=== PATIENT | female | born 1950 | race Caucasian/White ===

== ENCOUNTER 2022-08-29 13:14 | Outpatient (CLI) | payer MEDICARE, OTHER, SELFPAY ==
--- NOTE | 2022-08-29 13:34 | MM_ITS ---
WS: [id number] BILATERAL 3D TOMOSYNTHESIS DIGITAL SCREENING MAMMOGRAPHY WITH CAD CLINICAL INFORMATION: SCREEN HISTORY: Screening mammogram. No current complaints. COMPARISON: 2019 TECHNIQUE: Bilateral CC and MLO views. FINDINGS: Scattered fibroglandular densities bilaterally. No suspicious focal mass, asymmetry, calcifications, or architectural distortion. No evidence of malignancy. Dystrophic calcifications. Punctate and lucen t centered calcifications. Vascular calcifications. MM/[id number] IMPRESSION: BI-RADS: 2-Benign FOLLOW UP: 1 Year Follow-up Recommend return to annual screening mammography.
--- NOTE | 2022-08-29 13:47 | USCV_ITS ---
Lucia Connolly Age: 71 Gender: F : 1950 Exam Date: 08/29/2022 14:20 Ordering Phys: Justice Beltre XX Technologist: Exam [place] [facility] [place]: chest pain BP: 130 / 70 HR: 85 Rhythm: Sinus Technical Quality: Adequate MEASUREMENTS (Male / Female) Normal Values 2D ECHO LV Diastolic Diameter PLAX 3.8 cm 4.2 - 5.9 / 3.9 - 5.3 cm LV Systolic Diameter PLAX 2.3 cm IVS Diastolic Thickness 1.2 cm 0.6 - 1.0 / 0.6 - 0.9 cm IVS Systolic Thickness 1.4 cm LVPW Diastolic Thickness 1.1 cm 0.6 - 1.0 / 0.6 - 0.9 cm LVPW Systolic Thickness 1.8 cm LVOT Diameter 2.0 cm LV Ejection Fraction 2D Teich 71.3 % LV Ejection Fraction MOD 2C 77.0 % LV Ejection Fraction 2C AL 76.2 % LA Diameter 4.0 cm M-MODE Aortic Annulus Diameter 3.1 cm LA Ao Ratio MM 1.4 MV E Point Septal Separation 1.0 cm DOPPLER AV Peak Velocity 140.0 cm/s LVOT Peak Velocity 104.0 cm/s AV Area Cont Eq vti 3.1 cm squared AV Area Cont Eq pk 2.4 cm squared MV Area PHT 4.1 cm squared Mitral E to A Ratio 0.7 MV E' Velocity 76.0 cm/s TR Peak Velocity 289.0 cm/s TR Peak Gradient 33.4 mmHg TV Peak E Velocity 103.0 cm/s Right Atrial Pressure 3.0 mmHg Pulmonary Artery Systolic Pressu 36.4 mmHg RV Acceleration Time 0.1 s FINDINGS Left Ventricle Left ventricle is normal in size. LV systolic function is normal with EF of 60 to 65%. No regional wall motion abnormalities are seen. Grade 1 diastolic dysfunction Right Ventricle Normal in size and function Right Atrium Normal in size Left Atrium Normal in size Mitral Valve Structurally normal mitral valve. No significant regurgitation Aortic Valve Aortic valve is thickened. No significant stenosis or regurgitation Tricuspid Valve Mild tricuspid regurgitation. RVSP is 35 to 40 mmHg. This is consistent with mild pulmonary hypertension. Pulmonic Valve Not well-visualized. Pericardium Normal Aorta Normal in size IVC Appears to be normal CONCLUSIONS LV systolic function is normal with EF of 60-65% Grade 1 diastolic dysfunction Mild tricuspid regurgitation Mild pulmonary hypertension No comparison studies are available. Piyush Best MD (Electronically Signed) Final Date: 10 September 2022 15:42 S
== END 2022-08-29 13:15 | disposition home or self-care (01) ==
LOC: RAD 13:18
PROVIDERS: Family Provider Family Medicine; Visit Provider Family Medicine
DX: Z12.31 Encounter for screening mammogram for malignant neoplasm of breast (principal); I07.1 Rheumatic tricuspid insufficiency; I27.20 Pulmonary hypertension, unspecified
CPT/HCPCS: 77063; 77067; 93306

== ENCOUNTER → 2023-11-20 14:30 | Outpatient (BNVA) | payer MEDICARE, OTHER, SELFPAY | PROVIDERS: Family Provider Family Medicine; PCP Family Medicine; Visit Provider Nurse Practitioner Family | DX: L30.9 Dermatitis, unspecified (principal); L81.4 Other melanin hyperpigmentation; L57.8 Other skin changes due to chronic exposure to nonionizing radiation; F42.4 Excoriation (skin-picking) disorder | CPT/HCPCS: 11104; 11105; 99204 ==

== ENCOUNTER 2023-11-30 11:50 | Outpatient (CLI) | payer MEDICARE, OTHER, SELFPAY ==
[2023-11-30 13:30] LABS: Alanine Aminotransferase 17 U/L (0-33); Aspartate Amino Transferase 24 U/L (0-32)
== END 2023-11-30 11:51 | disposition home or self-care (01) ==
LOC: LAB 11:52
PROVIDERS: Family Provider Family Medicine; PCP Family Medicine; Visit Provider Dermatology
DX: B42.1 Lymphocutaneous sporotrichosis (principal); Z79.899 Other long term (current) drug therapy
CPT/HCPCS: 36415; 84450; 84460

== ENCOUNTER 2024-01-09 13:30 | Outpatient (CLI) | payer MEDICARE, OTHER, SELFPAY ==
[2024-01-09 14:12] LABS: Alanine Aminotransferase 16 U/L (0-33); Alkaline Phosphatase 82 U/L (35-105); Anion Gap 17.5 (5-19); Aspartate Amino Transferase 24 U/L (0-32); Blood Urea Nitrogen 16 mg/dL (8-23); Calcium 8.9 mg/dL (8.5-10.5); Carbon Dioxide 25 mmol/L (22-29); Chloride 99 mmol/L (98-107); Globulin 3.8 g/dL (1.3-4.6); Glucose 226 mg/dL (65-115); Osmolality Calculated 292 mOsm/kg (285-295); Potassium 4.5 mmol/L (3.5-5.1); Sodium 137 mmol/L (136-145); Total Bilirubin 0.5 mg/dL (0.15-1.2); Total Protein 7.8 g/dL (6.6-8.7)
== END 2024-01-09 13:31 | disposition home or self-care (01) ==
LOC: LAB 13:31
PROVIDERS: Family Provider Family Medicine; PCP Family Medicine; Visit Provider Dermatology
DX: B42.1 Lymphocutaneous sporotrichosis (principal); Z79.899 Other long term (current) drug therapy
CPT/HCPCS: 36415; 80053

== ENCOUNTER 2024-02-20 14:04 | Outpatient (CLI) | payer MEDICARE, OTHER, SELFPAY ==
[2024-02-20 14:50] LABS: Alanine Aminotransferase 16 U/L (0-33); Albumin Level 4.2 g/dL (3.5-5.2); Alkaline Phosphatase 78 U/L (35-105); Anion Gap 17.6 (5-19); Aspartate Amino Transferase 19 U/L (0-32); Blood Urea Nitrogen 18 mg/dL (8-23); Calcium 9.2 mg/dL (8.5-10.5); Carbon Dioxide 24 mmol/L (22-29); Chloride 99 mmol/L (98-107); Globulin 3.7 g/dL (1.3-4.6); Glucose 169 mg/dL (65-115); Osmolality Calculated 288 mOsm/kg (285-295); Potassium 4.6 mmol/L (3.5-5.1); Sodium 136 mmol/L (136-145); Total Bilirubin 0.3 mg/dL (0.15-1.2); Total Protein 7.9 g/dL (6.6-8.7)
== END 2024-02-20 14:05 | disposition home or self-care (01) ==
PROVIDERS: PCP Family Medicine; Visit Provider Dermatology
DX: Z79.899 Other long term (current) drug therapy (principal)
CPT/HCPCS: 36415; 80053

== ENCOUNTER 2024-03-18 15:23 | Outpatient (CLI) | payer MEDICARE, OTHER, SELFPAY ==
--- NOTE | 2024-03-18 15:30 | XRR_ITS ---
PROCEDURE INFORMATION: Exam: XR Chest Exam date and time: 03/18/2024 3:41 PM Age: 73 years old Clinical indication: Patient HX: PT states her doctor wants to look at her lungs. PT has a rash that covers the chest area. ; Additional info: Fatigue TECHNIQUE: Imaging protocol: Radiologic exam of the chest. Views: 2 views. COMPARISON: No relevant prior studies available. FINDINGS: Lungs: Unremarkable. No consolidation or mass. Pleural spaces: Unremarkable. No pleural effusion. No pneumothorax. Heart/Mediastinum: Unremarkable. No cardiomegaly. Bones/joints: Unremarkable. XR/XR chest 2V* [id number] IMPRESSION: No acute findings.
[2024-03-18 15:46] LABS: Basophils % 0.7 %; Eosinophils # 0.1 10^3/uL (0.0-0.8); Eosinophils % 1.9 %; Lymphocytes # 1.3 10^3/uL (0.8-4.8); Lymphocytes % 23.1 %; Mean Corpuscular HGB Conc 31.2 g/dL (30-55); Mean Platelet Volume 10.2 fL (7.4-10.4); Monocytes # 0.6 10^3/uL (0.2-0.9); Monocytes % 9.9 %; Neutrophils # 3.63 10^3/uL (1.8-7.7); Nucleated Red Blood Cells % 0 %; Platelet Count 190 10^3/cmm (157-399); Red Blood Count 4.78 10^6/uL (3.85-5.65); Red Cell Distribution Width 13.5 % (12.1-15.1); White Blood Count 5.67 10^3/uL (3.29-11.43)
[2024-03-18 16:15] LABS: Free T4 Free Thyroxine 0.96 ng/dL (0.82-1.77); Thyroid Stimulating Hormone 1.34 uIU/mL (0.27-4.20)
[2024-03-19 18:00] LABS: Vitamin B12 219 pg/mL (232-1245)
== END 2024-03-18 15:24 | disposition home or self-care (01) ==
LOC: RAD 15:25
PROVIDERS: PCP Family Medicine; Visit Provider Dermatology
DX: R20.2 Paresthesia of skin (principal); R53.83 Other fatigue
CPT/HCPCS: 36415; 71046; 82607; 82746; 84439; 84443; 85025

== ENCOUNTER → 2024-04-01 12:53 | Outpatient (BNVA) | payer MEDICARE, OTHER, SELFPAY | PROVIDERS: PCP Family Medicine; Visit Provider Dermatology | DX: L29.9 Pruritus, unspecified (principal) | CPT/HCPCS: 99214 ==

== ENCOUNTER → 2024-04-30 13:10 | Outpatient (BNVA) | payer MEDICARE, OTHER, SELFPAY | PROVIDERS: PCP Family Medicine; Visit Provider Dermatology | DX: L29.9 Pruritus, unspecified (principal) | CPT/HCPCS: 99214 ==